=== PATIENT | female | born 1980 | race Caucasian/White ===

== ENCOUNTER → 2018-07-26 | Outpatient (CLI) | payer SELFPAY | LOC: LAB.O 15:35 | PROVIDERS: ATTEND Nurse Practitioner Family | DX: Z20.2 Contact with and (suspected) exposure to infections with a predominantly sexual mode of transmission (principal) ==

== ENCOUNTER 2018-08-08 08:02 | Emergency (ER) | payer SELFPAY ==
[2018-08-08 08:13] VITALS: TEMP 98.4
[2018-08-08] MEDS ORDERED: SULFA/TRIMETH 800/160 (DS) TAB 1 EA TAB PO ONE (08:21)
[2018-08-08] MEDS ORDERED: valACYclovir 500 MG TAB PO ONE (08:22)
[2018-08-08] MEDS ORDERED: cefTRIAXone SODIUM 1 GM VIAL IM ONE (08:22)
[2018-08-08] MEDS ORDERED: CLINDAMYCIN HCL CAP 150 MG CAP PO ONE (08:23)
--- NOTE | 2018-08-08 08:30 | ED.PDOC ---
History of Present Illness - General Chief Complaint: Skin/Abrasion/Tear Stated Complaint: sore on upper lip Time Seen by Provider: 08/08/18 08:08 Source: patient Exam Limitations: no limitations - History of Present Illness Initial Comments: the patient is a 38-year-old female presenting to the emergency room secondary to what appears to be a cellulitis of her upper lip. The patient reports that this started with a fever blister that started approximately 3 days ago. She has been putting Abreva on the fever blister. She started noticing increased swelling yesterday so she went to her primary care doctor who started her on amoxicillin. In spite of a couple of doses of amoxicillin the swelling has continued to increase. She does have swelling extending just up to the right nasolabial fold. Minimal skin erythema. There is no obvious abscess formation yet. She does not appear to be septic and is afebrile. Timing/Duration: gone, other Severity: moderate Improving Factors: nothing Worsening Factors: nothing Associated Symptoms: denies symptoms Allergies/Adverse Reactions: Allergies NO KNOWN ALLERGY Allergy (Verified 08/21/12 12:35) Home Medications: Ambulatory Orders Amoxicillin 875 mg PO BID 08/08/18 Review of Systems - Review of Systems Constitutional: States: no symptoms reported EENTM: States: see HPI Respiratory: States: no symptoms reported Cardiology: States: no symptoms reported Gastrointestinal/Abdominal: States: no symptoms reported Genitourinary: States: no symptoms reported Musculoskeletal: States: no symptoms reported Skin: States: see HPI Neurological: States: no symptoms reported Endocrine: States: no symptoms reported All other Systems: No Change from Baseline Past Medical History (General) - Patient Medical History Hx Seizures: No Hx Asthma: No Hx Cardiac Disorders: No Hx Thyroid Disease: No Hx Diabetes: No Hx Renal Disease: No Surgical History: other - Social History Hx Substance Use: Yes - 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 - Female History Hx Last Menstrual Period: 03/28/13 Expected Date of Delivery:: 12/17/13 Family Medical History - Family History Mother Family History: Unknown Physical Exam - Physical Exam General Appearance: Alert, Comfortable, No apparent distress Eye Exam: bilateral normal Ears, Nose, Throat: hearing grossly normal, normal ENT inspection Neck: non-tender, full range of motion Respiratory: lungs clear, normal breath sounds, no respiratory distress, no accessory muscle use Cardiovascular/Chest: normal peripheral pulses, regular rate, rhythm, no edema Peripheral Pulses: radial,right: 2+, radial,left: 2+ Gastrointestinal/Abdominal: non tender, soft Rectal Exam: deferred Back Exam: normal inspection, no CVA tenderness Extremity: normal range of motion, non-tender, normal inspection, no pedal edema, normal capillary refill 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 The patient is given a dose of Valtrex here and will be written for 1 more dose of Valtrex to be taken later tonight. I believe she has an underlying superimposed bacterial cellulitis. She has not yet responded significantly to the amoxicillin so we are going to broaden the antibiotic coverage to include better MRSA coverage with Bactrim and Levaquin. The patient has been instructed to take pictures with her phone every 6 hours. If the process continues to worsen in spite of current measures or fails to improve over the next day or 2 then she will need IV antibiotic therapy. At this point in time there is no abscess to drain and no evidence of any sepsis. She has received doses of clindamycin, Bactrim and Rocephin here as well today. I do recommend that she follow back up with her primary care doctor tomorrow for reevaluation regardless, as these infections can progress fairly rapidly. ER warnings were given for any worsening. Departure - Departure Clinical Impression: Cellulitis of lip, Recurrent herpes labialis Disposition: Discharge to Home or Self Care Condition: Fair Departure Forms: ED Discharge - Pt. Copy, Patient Portal Self Enrollment Instructions: DI for Wound Infection Diet: regular diet Activity: increase activity as tolerated Referrals: Monica Hart JAVA LEAD [Primary Care Provider] - 1-2 Days Home Medications: Ambulatory Orders Amoxicillin 875 mg PO BID 08/08/18 Additional Instructions: the patient is a 38-year-old female presenting with cellulitis of the upper lip primarily on the right side that started with a fever blister. The patient is given a dose of Valtrex here and will be written for 1 more dose of Valtrex to be taken later tonight. I believe she has an underlying superimposed bacterial cellulitis. She has not yet responded significantly to the amoxicillin so we are going to broaden the antibiotic coverage to include better MRSA coverage with Bactrim and Levaquin. The patient has been instructed to take pictures with her phone every 6 hours. If the process continues to worsen in spite of current measures or fails to improve over the next day or 2 then she will need IV antibiotic therapy. At this point in time there is no abscess to drain and no evidence of any sepsis. She has received doses of clindamycin, Bactrim and Rocephin here as well today. I do recommend that she follow back up with her primary care doctor tomorrow for reevaluation regardless, as these infections can progress fairly rapidly. ER warnings were given for any worsening.
[2018-08-08] MEDS ORDERED: LIDOCAINE 1% 2 ML VIAL INJ ONE (08:32)
[2018-08-08 09:12] VITALS: BP 140/89; O2SAT 98
== END 2018-08-08 09:08 | disposition home or self-care (01) ==
LOC: ER 08:02
DX: B00.1 Herpesviral vesicular dermatitis (principal); K13.0 Diseases of lips

== ENCOUNTER 2019-06-29 11:21 | Emergency (ER) | payer SELFPAY ==
[2019-06-29] MEDS ORDERED: HYDROcodone 10MG/APAP 325MG 1 EA TAB PO ONE (11:40)
--- NOTE | 2019-06-29 11:43 | ED.PDOC ---
History of Present Illness - General Chief Complaint: ENT Problem Stated Complaint: Sore throat, fever, cough Time Seen by Provider: 06/29/19 11:38 Source: patient, RN notes reviewed, Vital Signs reviewed Exam Limitations: no limitations - History of Present Illness Initial Comments: 39 yo female presents with 2 day h/o sore throat and subjective fever. Has taken Dayquill and Nyquill with some relief. States it is painful to swallow liquids and solid food. Has had mild cough. Denies vomiting, diarrhea or ADAN or neck stiffness. Allergies/Adverse Reactions: Allergies NO KNOWN ALLERGY Allergy (Verified 08/21/12 12:35) Home Medications: Ambulatory Orders Amoxicillin 875 mg PO BID 08/08/18 Acetaminophen W/ Codeine [Tylenol W/ CODEINE #3] 1 tablet PO Q6H PRN #20 06/29/19 Amoxicillin [Amoxil] 500 mg PO TID 10 Days cap 06/29/19 Review of Systems - Review of Systems Constitutional: States: fever, malaise. Denies: chills EENTM: States: nose congestion, throat pain. Denies: blurred vision, ear pain Respiratory: States: cough. Denies: short of breath, stridor Cardiology: Denies: chest pain, palpitations, syncope Gastrointestinal/Abdominal: Denies: diarrhea, nausea, vomiting Genitourinary: States: no symptoms reported Musculoskeletal: Denies: back pain, neck pain Skin: States: no symptoms reported All other Systems: Reviewed and Negative Past Medical History (General) - Patient Medical History Hx Seizures: No Hx Stroke: No Hx Asthma: No Hx Cardiac Disorders: No Hx Congestive Heart Failure: No Hx Thyroid Disease: No Hx Diabetes: No Hx Renal Disease: No Hx MRSA: No Surgical History: no surgical history - Vaccination History Hx Influenza Vaccination: No Hx Pneumococcal Vaccination: No - Social History Hx Tobacco Use: No Hx Alcohol Use: No Hx Substance Use: No - Female History Patient is a Female of Child Bearing Age (10 -59 yrs old): Yes Hx Last Menstrual Period: 03/28/13 Patient : No Expected Date of Delivery:: 12/17/13 Family Medical History - Family History Mother Family History: No Known Living Status: Still Living Physical Exam - Physical Exam General Appearance: Alert, Comfortable, No apparent distress Ears, Nose, Throat: other - Bilateral TM's have no erythema or effusion. Oropharynx has bilateral tonsillar edema and exudates. No trismus or uvular shift. No peritonsillar abscess Neck: non-tender, full range of motion, supple Respiratory: chest non-tender, lungs clear, normal breath sounds, no respiratory distress Cardiovascular/Chest: regular rate, rhythm, no edema Gastrointestinal/Abdominal: non tender, soft Extremity: normal range of motion, non-tender, no pedal edema, no calf tenderness Neurologic: no motor/sensory deficits, alert, normal mood/affect Skin Exam: normal color, warm/dry Progress - Progress Progress: 06/29/19 12:19 Pt presents with sore throat and fever. Influenza negative. Exam is c/w strep pharyngitis despite screen being negative. i will treat with Amoxil based on clinical picture. No sign of peritnsillar abscess at this time. Will f/u with pcp in 1-2 days for recheck. srp given. Departure - Departure Clinical Impression: Acute febrile illness Time of Disposition: 12:17 Disposition: Discharge to Home or Self Care Condition: Fair Departure Forms: ED Discharge - Pt. Copy, Patient Portal Self Enrollment Instructions: Sore Throat, Adult (DC) Diet: full liquid diet Activity: increase activity as tolerated Referrals: Mimi Michelle FNP [Primary Care Provider] - 1-2 Weeks Prescriptions: Acetaminophen W/ Codeine [Tylenol W/ CODEINE #3] 1 tablet PO Q6H PRN #20 PRN Reason: Pain Amoxicillin [Amoxil] 500 mg PO TID 10 Days cap Home Medications: Ambulatory Orders Amoxicillin 875 mg PO BID 08/08/18 Acetaminophen W/ Codeine [Tylenol W/ CODEINE #3] 1 tablet PO Q6H PRN #20 06/29/19 Amoxicillin [Amoxil] 500 mg PO TID 10 Days cap 06/29/19
[2019-06-29] MEDS ORDERED: ACETAMINOPHEN 500 MG TAB PO ONE (12:32)
[2019-06-29 12:41] VITALS: BP 125/71; TEMP 102.1; O2SAT 94
== END 2019-06-29 12:35 | disposition home or self-care (01) ==
LOC: ER 11:21
DX: R50.9 Fever, unspecified (principal); J02.9 Acute pharyngitis, unspecified; R05 Cough

== ENCOUNTER 2020-01-21 03:21 | Emergency (ER) | payer SELFPAY ==
[2020-01-21] MEDS ORDERED: SODIUM CHLORIDE 0.9% (FLUSH) 10 ML SYG IV PRN (03:31)
[2020-01-21] MEDS ORDERED: TETANUS,DIPHTHERIA,PERTUSSIS 1 EA SYG IM ONE (03:47)
[2020-01-21] MEDS ORDERED: AMOXICILLIN & POT CLAVULANATE 875 MG TAB PO ONE (03:47)
--- NOTE | 2020-01-21 03:53 | ED.PDOC ---
History of Present Illness - General Chief Complaint: Bite: Animal/Insect/Human Stated Complaint: snake bite Time Seen by Provider: 01/21/20 03:31 Source: patient - History of Present Illness Initial Comments: 39 yo female who presents with cc of snake bite wound to her Right hand, which occurred approx 8.5 hours ago at home. She has a pet python - states she went to feed it and it bit her in the Right palm near the base of the thumb causing 2 superficial puncture wounds. Reports sharp pain with the incident which has subsided but she reports worsening bruising and swelling to the area. She also reports intermittent tingling sensations that run up her RUE. She has not taken any medications for these symptoms. Denies any fevers, chills, chest pain, cough, dyspnea, abd pain, n/v/d, confusion, or other systemic symptoms. Unsure of date of last tetanus imm. She is concerned about possible local infection of the hand and also requests a tetanus booster. Allergies/Adverse Reactions: Allergies NO KNOWN ALLERGY Allergy (Verified 08/21/12 12:35) Home Medications: Ambulatory Orders Amoxicillin 875 mg PO BID 08/08/18 Acetaminophen W/ Codeine [Tylenol W/ CODEINE #3] 1 tablet PO Q6H PRN #20 06/29/19 Amoxicillin [Amoxil] 500 mg PO TID 10 Days cap 06/29/19 Amoxicillin & Pot Clavulanate [Augmentin Tab] 875 mg PO BID 5 Days #10 tab 01/21/20 Review of Systems - Review of Systems Review of Systems: 01/21/20 03:53 as per HPI All other Systems: Reviewed and Negative Past Medical History (General) - Patient Medical History Hx Seizures: No Hx Stroke: No Hx Asthma: No Hx Cardiac Disorders: No Hx Congestive Heart Failure: No Hx Thyroid Disease: No Hx Diabetes: No Hx Renal Disease: No Hx MRSA: No - Vaccination History Hx Influenza Vaccination: No Hx Pneumococcal Vaccination: No - Social History Hx Tobacco Use: No Hx Alcohol Use: No Hx Substance Use: No - Female History Hx Last Menstrual Period: 03/28/13 Patient : No Expected Date of Delivery:: 12/17/13 Family Medical History - Family History Mother Family History: No Known Living Status: Still Living Physical Exam - Physical Exam General Appearance: Alert, Comfortable, No apparent distress Eye Exam: bilateral normal Ears, Nose, Throat: hearing grossly normal, normal ENT inspection, normal pharynx Neck: non-tender, full range of motion, supple, normal inspection Respiratory: lungs clear, normal breath sounds, no respiratory distress, no accessory muscle use Cardiovascular/Chest: normal peripheral pulses, regular rate, rhythm, no edema, no gallop, no JVD, no murmur Peripheral Pulses: radial,right: 2+, radial,left: 2+ Gastrointestinal/Abdominal: non tender, soft Extremity: other - approx 3x3 cm area of localized dark blue bruising to lateral palmar base of R hand near the thenar eminence with 2 small 1 mm punctate wounds from snake bite. The area is slightly swollen without erythema, warmth, TTP, or purulent drainage. 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 Consider localized hand infection vs localized tissue inflammation vs allergic reaction vs other -will obtain basic snakebite labs. Will also give tetanus imm booster. Cold pack to R hand to help limit pain/swelling. Offered Benadryl but pt declines. 01/21/20 04:30 -Patient remained stable throughout ED stay. Labs were significant only for mild anemia and mildly elevated CPK level. I encouraged the patient to remain well-hydrated and strict ED return precautions were discussed prior to discharge. Will send home also on prescription of Augmentin 875 twice daily for 5 days as prophylaxis against infection. Kushal Scott MD Billing #[id number] 01/21/20 03:31 IV Care:Saline Lock per Protoc QSHIFT Telemetry .ONCE 01/21/20 03:45 EKG STAT 01/21/20 03:48 Compress/Pack:Cold ONCE Laboratory Results - last 24 hr 01/21/20 01/21/20 01/21/20 03:49 03:49 03:49 WBC 8.3 RBC 3.90 L Hgb 11.7 L Hct 34.4 L MCV 88.1 MCH 30.0 MCHC 34.1 RDW 13.6 Plt Count 226 MPV 9.6 Absolute Neuts (auto) 4.00 Absolute Lymphs (auto) 2.90 Absolute Monos (auto) 0.90 H Absolute Eos (auto) 0.40 Absolute Basos (auto) 0.10 Neutrophils % 47.9 Lymphocytes % 35.5 Monocytes % 10.7 H Eosinophils % 4.9 Basophils % 1.0 PT 10.1 INR 1.02 PTT (SP) 27.2 Fibrinogen 260 Sodium 140 Potassium 3.4 L Chloride 107 Carbon Dioxide 25 Anion Gap 11.4 L BUN 13 Creatinine 0.70 BUN/Creatinine Ratio 18.6 Random Glucose 104 Serum Osmolality 279.8 Calcium 9.1 Total Bilirubin 0.4 AST 19 ALT 16 Alkaline Phosphatase 57 Creatine Kinase 249 H* CK-MB (CK-2) 5.7 H* CK-MB (CK-2) % 2.29 Troponin I < 0.02 Serum Total Protein 7.0 Albumin 3.8 Globulin 3.2 Albumin/Globulin Ratio 1.2 Departure - Departure Clinical Impression: Bite, snake, non-venomous Qualifiers: Encounter type: initial encounter Qualified Code(s): W59.11XA - Bitten by nonvenomous snake, initial encounter Time of Disposition: 04:00 Disposition: Discharge to Home or Self Care Condition: Good Departure Forms: ED Discharge - Pt. Copy, Patient Portal Self Enrollment Instructions: DI for Animal Bites Diet: resume usual diet Activity: increase activity as tolerated Referrals: Mimi Michelle FNP [Primary Care Provider] - 1-2 Weeks Prescriptions: Amoxicillin & Pot Clavulanate [Augmentin Tab] 875 mg PO BID 5 Days #10 tab Home Medications: Ambulatory Orders Amoxicillin 875 mg PO BID 08/08/18 Acetaminophen W/ Codeine [Tylenol W/ CODEINE #3] 1 tablet PO Q6H PRN #20 06/29/19 Amoxicillin [Amoxil] 500 mg PO TID 10 Days cap 06/29/19 Amoxicillin & Pot Clavulanate [Augmentin Tab] 875 mg PO BID 5 Days #10 tab 01/21/20 Additional Instructions: Take the antibiotics as prescribed. Return to the ED if concerning symptoms develop such as rapidly worsening redness, warmth, pain, swelling, or pus-like drainage to the area of the bite wounds or chest pain, shortness of breath, etc... Follow up with your primary care physician as scheduled or sooner as needed.
[2020-01-21 04:49] VITALS: BP 126/66; TEMP 97.4; O2SAT 100
== END 2020-01-21 04:20 | disposition home or self-care (01) ==
LOC: ER 03:21
DX: S61.451A Open bite of right hand, initial encounter (principal); W59.11XA Bitten by nonvenomous snake, initial encounter; Y92.009 Unspecified place in unspecified non-institutional (private) residence as the place of occurrence of the external cause

== ENCOUNTER → 2020-03-29 | Outpatient (CLI) | payer SELFPAY | LOC: LAB.O 11:07 | PROVIDERS: ATTEND Nurse Practitioner | DX: R32 Unspecified urinary incontinence (principal) ==